=== PATIENT | female | born 1960 | race Caucasian/White ===

== ENCOUNTER → 2016-06-02 | Outpatient (CLI) | payer OTHER | LOC: FIMAGING 14:22 | DX: Z12.31 Encounter for screening mammogram for malignant neoplasm of breast (principal) | CPT/HCPCS: G0202 ==

== ENCOUNTER → 2017-06-23 | Outpatient (CLI) | payer OTHER | LOC: FIMAGING 12:33 | PROVIDERS: ATTEND Internal Medicine | DX: Z12.31 Encounter for screening mammogram for malignant neoplasm of breast (principal) ==

== ENCOUNTER → 2018-08-16 | Outpatient (CLI) | payer OTHER | LOC: FIMAGING 11:53 | PROVIDERS: ATTEND Internal Medicine | DX: Z12.31 Encounter for screening mammogram for malignant neoplasm of breast (principal) ==

== ENCOUNTER 2018-08-27 11:24 | Emergency (ER) | payer OTHER ==
[2018-08-27] MEDS ORDERED: NS 500 ML IV ONE (11:43)
--- NOTE | 2018-08-27 11:47 | EDPHY ---
H & P Time Seen by Provider: 08/27/18 11:30 HPI/ROS: HPI Right-sided flank pain. Concerned about gallbladder. 58-year-old female by private vehicle. This patient was seen at an urgent care prior to coming here. She reports that since 12 midnight she has had an aching sensation involving her right flank area. She reports that this is better now. No associated nausea or vomiting. Last bowel movement was this morning and this was normal. No bloody or melenic stool. Her last meal was last night at dinner. No prior abdominal surgical history. She has not had this pain in the past. She denies any hematuria. She had a urinalysis dip that was negative for blood at the urgent care. She also had a KUB done and was told that there was concern regarding her gallbladder. She was sent to the emergency department from urgent care for further evaluation. ROS: Constitutional: No fever, no chills. No weakness. Eyes: No discharge. No changes in vision. ENT: No sore throat. No nasal congestion or rhinorrhea. Respiratory: No cough. No shortness of breath. Cardiac: No chest pain, no palpitations. Gastrointestinal: No abdominal pain, no vomiting, no diarrhea. Genitourinary: No hematuria. No dysuria or increased frequency with urination. Musculoskeletal: As above. No neck pain. No myalgias or arthralgias. Skin: No rashes. Neurological: No headache. No focal weakness or altered sensation. Past medical history: Depression, anxiety, high cholesterol. Social history: Nonsmoker. No alcohol. Here by herself. Physical Exam: General Appearance: Alert, she appears comfortable and is not in distress. This patient is responding to questions appropriately and in full sentences. This patient appears well-hydrated and well-nourished. Eyes: Pupils equal and round no pallor or injection. No lid edema, erythema or injection. Respiratory: There are no retractions, lungs are clear to auscultation with good air movement bilaterally. Cardiovascular: Regular rate and rhythm. No murmur. Gastrointestinal: Abdomen is soft and nontender, no masses, bowel sounds normal. No focal tenderness at McBurney's point. No Stark sign. Neurological: Motor sensory function is grossly intact. Cranial nerves are normal. Gait is normal. Skin: Warm and dry, no rashes. Musculoskeletal: No CVA tenderness bilaterally. Extremities are symmetrical. All joints range without pain or impingement. Psychiatric: No agitation. No depression. Database: EKG: Imaging: Right upper quadrant ultrasound: She does have some gallstones which are new from 2006. There are no findings suggestive of cholecystitis. Fatty liver noted. Results were discussed with staff radiologist Dr. Srinivas Soriano. Procedures: Emergency department course: Triage vital signs reviewed. She is moderately hypertensive. Vital signs are otherwise normal. She is afebrile. IV was placed. She was started on IV normal saline with 500 cc to be given over the next hour. She declines pain medication or antiemetics at this time. Right upper quadrant ultrasound and standard blood work to be obtained. Will also obtain urine for urinalysis and microscopy. Her presentation is consistent with biliary colic verses ureterolithiasis versus possible pyelonephritis. 1:15 p.m., the patient was re-evaluated, she is resting comfortably at this time. Denies any pain or other complaints. Results of her emergency department workup and diagnostic testing discussed with her. These results have been reassuring. She currently does not have any pain. She may have had a brief episode of biliary colic secondary to her gallstones. There does not appear to be any evidence of obstruction or other significant pathology on her ultrasound as noted above. Her blood work and urinalysis were reassuring as well ureterolithiasis and pyelonephritis very unlikely. She feels comfortable going home at this time and I feel she is safe for discharge. Follow-up and return to emergency department precautions reviewed with her. All of her questions were answered. She was discharged from the emergency department in good condition. Differential Diagnosis: The differential diagnosis on this patient includes but is not limited to biliary colic, cholecystitis, ureterolithiasis, pyelonephritis. This represents a partial list of diagnoses considered. These considerations are based on history, physical exam, past history, reassessment and diagnostic testing. Smoking Status: Never smoked Constitutional: Initial Vital Signs Temperature (C) 37 C 08/27/18 11:29 Heart Rate 86 08/27/18 11:29 Respiratory Rate 16 08/27/18 11:29 Blood Pressure 188/84 H 08/27/18 11:29 O2 Sat (%) 97 08/27/18 11:29 O2 Delivery Mode Room Air Allergies/Adverse Reactions: No Known Allergies Allergy (Unverified 11/14/10 13:17) Home Medications: Medication Instructions Recorded Atorvastatin Calcium [Lipitor 10 10 mg PO DAILY 11/14/10 mg] Effexor Xr 08/27/18 Wellbutrin 150mg SR (*) 08/27/18 Medical Decision Making - Diagnostics Imaging Results: Imaging Impressions Abdomen Ultrasound 08/27/18 12:11 Impression: 1. Heterogeneous echogenicity of the liver suggestive of hepatic steatosis. 2. Cholelithiasis without ultrasound evidence of cholecystitis. Findings discussed with Zamzam Barkley MD at 13:10 hour, 08/27/2018. - Data Points Laboratory Results: Laboratory Results 08/27/18 11:30 08/27/18 11:30 08/27/18 08/27/18 08/27/18 12:45 11:30 11:30 WBC 7.13 10^3/uL 10^3/uL (3.80-9.50) RBC 4.72 10^6/uL 10^6/uL (4.18-5.33) Hgb 14.1 g/dL g/dL (12.6-16.3) Hct 42.0 % % (38.0-47.0) MCV 89.0 fL fL (81.5-99.8) MCH 29.9 pg pg (27.9-34.1) MCHC 33.6 g/dL g/dL (32.4-36.7) RDW 12.5 % % (11.5-15.2) Plt Count 360 10^3/uL 10^3/uL (150-400) MPV 8.5 fL L fL (8.7-11.7) Neut % (Auto) 55.2 % % (39.3-74.2) Lymph % (Auto) 32.5 % % (15.0-45.0) [place] % (Auto) 7.4 % % (4.5-13.0) Eos % (Auto) 3.8 % % (0.6-7.6) Baso % (Auto) 0.7 % % (0.3-1.7) Nucleat RBC Rel Count 0.0 % % (0.0-0.2) Absolute Neuts (auto) 3.93 10^3/uL 10^3/uL (1.70-6.50) Absolute Lymphs (auto) 2.32 10^3/uL 10^3/uL (1.00-3.00) Absolute Monos (auto) 0.53 10^3/uL 10^3/uL (0.30-0.80) Absolute Eos (auto) 0.27 10^3/uL 10^3/uL (0.03-0.40) Absolute Basos (auto) 0.05 10^3/uL 10^3/uL (0.02-0.10) Absolute Nucleated RBC 0.00 10^3/uL 10^3/uL (0-0.01) Immature Gran % 0.4 % % (0.0-1.1) Immature Gran # 0.03 10^3/uL 10^3/uL (0.00-0.10) Sodium 138 mEq/L mEq/L (135-145) Potassium 4.1 mEq/L mEq/L (3.5-5.2) Chloride 99 mEq/L mEq/L (97-110) Carbon Dioxide 26 mEq/l mEq/l (22-31) Anion Gap 13 mEq/L mEq/L (6-14) BUN 12 mg/dL mg/dL (7-23) Creatinine 0.7 mg/dL mg/dL (0.6-1.0) Estimated GFR > 60 Glucose 98 mg/dL mg/dL (70-100) Calcium 9.2 mg/dL mg/dL (8.5-10.4) Total Bilirubin 0.6 mg/dL mg/dL (0.1-1.4) Conjugated Bilirubin 0.0 mg/dL mg/dL (0.0-0.5) Unconjugated Bilirubin 0.6 mg/dL mg/dL (0.0-1.1) AST 20 IU/L IU/L (14-46) ALT 39 IU/L IU/L (9-52) Alkaline Phosphatase 98 IU/L IU/L (38-126) Total Protein 6.7 g/dL g/dL (6.3-8.2) Albumin 4.1 g/dL g/dL (3.5-5.0) Lipase 40 IU/L IU/L (23-300) Urine Color PALE YELLOW Urine Appearance CLEAR Urine pH 7.0 (5.0-7.5) Ur Specific [place] 1.008 (1.002-1.030) Urine Protein NEGATIVE (NEGATIVE) Urine Ketones NEGATIVE (NEGATIVE) Urine Blood NEGATIVE (NEGATIVE) Urine Nitrate NEGATIVE (NEGATIVE) Urine Bilirubin NEGATIVE (NEGATIVE) Urine Urobilinogen NEGATIVE EU EU (0.2-1.0) Ur Leukocyte Esterase NEGATIVE (NEGATIVE) Urine RBC NONE SEEN /hpf /hpf (0-3) Urine WBC 1-3 /hpf /hpf (0-3) Ur Epithelial Cells TRACE /lpf /lpf (NONE-1+) Urine Glucose NEGATIVE (NEGATIVE) Medications Given: Discontinued Medications Sodium Chloride (Ns) 500 mls @ 0 mls/hr IV EDNOW ONE; Wide Open PRN Reason: Protocol Stop: 08/27/18 11:44 Last Admin: 08/27/18 11:49 Dose: 500 mls Departure - Departure Disposition: Home, Routine, Self-Care Clinical Impression: Right flank pain Condition: Good Instructions: Gallstones (ED) Additional Instructions: Read and follow provided instructions. Follow-up with your primary care physician on Wednesday or Wednesday of this week as needed. Return to the emergency department for return of pain, shortness of breath, fever, nausea and vomiting or other serious concerns. Referrals: Deena Diana MD [Primary Care Provider] - As per Instructions
[2018-08-27 11:50] LABS: PLATELET COUNT 360 10^3/uL (150-400)
[2018-08-27 13:35] VITALS: BP 113/51
== END 2018-08-27 13:32 | disposition home or self-care (01) ==
DX: R10.9 Unspecified abdominal pain (principal); K80.20 Calculus of gallbladder without cholecystitis without obstruction; E86.9 Volume depletion, unspecified